=== PATIENT | female | born 1965 | race Caucasian/White ===

== ENCOUNTER 2023-08-24 16:27 | Observation (INO) | payer OTHER ==
--- OUTSIDE RECORDS SUMMARY | 2023-08-24 16:29 | XMS REPORT | Clinical Summary ---
Author Name Unknown Organization [facility] Address [address] [place] [address] Care Team Providers Care Corn Picker Name Role Phone Lavell Marcial MD Unavailable [phone] Samuel Workman MD Primary Care Provider [phone] iVncent Thacker MD Unavailable [phone] Allergies No known active allergies Medications Medication Sig Dispensed Refills Start Date End Date Status estradiol (ESTRACE) 2 mg tablet Take 2 mg by mouth daily. 0 04/21/2019 Active fluticasone furoate-vilanterol (BREO ELLIPTA) 200-25 mcg/dose 1 INHALATION ONCE DAILY. RINSE MOUTH/DRINK AFTER USE. 0 06/29/2018 Active Surgical History Surgery Date Site/Laterality Comments INTRAOCULAR LENS INSERTION 06/03/2018 - 06/02/2019 Bilsunday tang Family History Medical History Relation Name Comments Glaucoma Mother Macular degeneration Neg Hx Relation Name Status Comments Mother Social History Tobacco Use Types Packs/Day Years Used Date Smoking Tobacco: Never Smokeless Tobacco: Never Sex and Gender Information Value Date Recorded Sex Assigned at Not on file Gender Identity Not on file Sexual Orientation Not on file Obstetrics History Plan of Treatment Health Maintenance Due Date Last Done Comments COVID-19 Vaccine (#1) 1965 Influenza Vaccine 02/01/2023 Care Teams Corn Picker Relationship Specialty Start Date End Date Lavell Marcial MD [address] [place] [phone] PCP - External Referring Ophthalmology 06/11/19 Samuel Workman MD [address] [place] [id number] PCP - General Ophthalmology 06/11/19 Vincent Thacker MD [address] [place] [id number] PCP - External Primary Care Provider Family Practice 06/15/18
[2023-08-24 18:24] LABS: Absolute Lymphocytes (CBC) 0.4 K/uL (0.7-4.9); Absolute Monocytes 0.4 K/uL (0.1-1.3); Absolute Neutrophil 10.6 K/uL (1.8-8.0); Basophils % 0.2 % (0-1.3); Hematocrit 37.4 % (36.0-45.0); Lymphocytes % 3.1 % (15.3-44.8); MCH 30.7 pg (27.0-35.0); MCHC 34.7 g/dL (32.0-36.0); MCV 88.5 fL (80-100); MPV 7.8 fL (7.6-11.3); Monocytes % 3.9 % (3.3-12.3); Neutrophils % 92.8 % (41.7-73.7); Nucleated Red Blood Cells % 0.1 % (0-0); Platelets 177 thou/uL (152-406); RBC Red Blood Cell Count 4.22 M/uL (3.86-4.86); Red Cell Distribution Width 12.5 % (12.1-15.2)
[2023-08-24 18:44] LABS: Albumin 3.3 g/dL (3.4-5.0); Albumin/Globulin Ratio 0.7 (1.1-1.8); Anion Gap 10.8 mEq/L (5.0-15.0); Bilirubin Total 0.9 mg/dL (0.2-1.0); Globulin 4.5 g/dL (2.3-3.5); Potassium 3.8 mEq/L (3.5-5.1); Protein, Total 7.8 g/dL (6.4-8.2)
--- NOTE | 2023-08-24 18:44 | RAD REPORT ---
EXAM DESCRIPTION: RAD - Chest Single View - 08/24/2023 6:27 pm CLINICAL HISTORY: Cough;SOB COMPARISON: No comparisons FINDINGS: Lines: None. Lungs: Patchy irregular bilateral airspace disease. Pleural: No significant pleural effusions or pneumothorax. Cardiac: The heart size is within normal limits. Mediastinum: Within normal limits. Bones: No acute fractures. Other: None IMPRESSION: Findings concerning for multifocal pneumonia.
[2023-08-24 18:45] LABS: PT Prothrombin Time 15.5 SECONDS (9.5-12.5); PTT, Activated Partial Thromb 44.9 SECONDS (24.3-36.9); Protime INR 1.42
[2023-08-24] MEDS ORDERED: CEFTRIAXONE 1000 MG/VIAL ONE (19:12)
[2023-08-24] MEDS ORDERED: IPRATROPIUM BROM 0.5MG/2.5ML ONE (19:12)
[2023-08-24] MEDS ORDERED: ALBUTEROL 2.5 MG/3 ML NEB SOL ONE (19:12)
[2023-08-24] MEDS ORDERED: AZITHROMYCIN 250 MG TAB ONE (19:13)
[2023-08-24] MEDS ORDERED: NA CHLORIDE 0.9% 100 ML ONE (19:13)
[2023-08-24] MEDS ORDERED: ACETAMINOPHEN 500 MG TAB ONE (20:26)
--- NOTE | 2023-08-24 20:49 | RAD REPORT ---
EXAM DESCRIPTION: CT - Chest For Pe Angio - 08/24/2023 8:40 pm CLINICAL HISTORY: SOB COMPARISON: Chest Single View dated 08/24/2023 TECHNIQUE: Dynamically enhanced axial 3 mm thick images of the chest were obtained during administra tion of <100> mL Isovue 370 IV contrast. Coronal and oblique reconstruction images were generated and reviewed. Exam utilizes a protocol for optimal evaluation of pulmonary arterial tree. Maximum intensity projections 3D imaging was utilized All CT scans are performed using dose optimization technique as appropriate and may include automated exposure control or mA/KV adjustment according to patient size. FINDINGS: Chest Wall: No suspicious thyroid nodules or pathologic lymphadenopathy. Lungs: Patchy areas of ground-glass and mildly consolidative airspace disease bilaterally. . Pleura: No significant effusions or pneumothorax. Mediastinum/shaan: Mild mediastinal and hilar adenopathy which is likely reactive. Pulmonary arteries/Aorta: No filling defect identified. No aortic aneurysm. Heart: No significant pericardial effusion. Normal heart size. Upper abdomen: No acute abnormality. Bones: No acute abnormality. IMPRESSION: Negative for pulmonary embolism. Moderate bilateral airspace disease bilaterally concern ing for multifocal pneumonia.
[2023-08-24 20:59] LABS: Specific Gravity 1.011 (1.005-1.030); Sqamous Epithelial <5 /HPF (None Seen); Urine Bacteria None Seen /HPF (<20); Urine Bilirubin NEGATIVE (Negative); Urine Blood 1+ (Negative); Urine Clarity Clear (Clear); Urine Color Light-Yellow (Yellow); Urine Culture Reflex Order NOT NEEDED; Urine Glucose NEGATIVE (Negative); Urine Ketones NEGATIVE (Negative); Urine Microscopic Reflex YN ORDER UMIC; Urine Mucus Slight /HPF (None Seen); Urine Nitrite NEGATIVE (Negative); Urine Protein TRACE (Negative); Urine RBC <5 /HPF (None Seen); Urine Urobilinogen Normal (Normal); Urine WBC <5 /HPF (<5); Urine pH 5.5 (5.0-7.0)
--- NOTE | 2023-08-24 22:14 | ER ---
Nurse's Notes [facility] Name: Dang Mcintosh Age: 58 yrs Sex: Female : 1965 Arrival Date: 08/24/2023 Time: 16:27 Bed 20 Private MD: TOMA RIOS Diagnosis: Other pneumonia, unspecified organism;Dyspnea Presentation: 08/23 16:57 Chief complaint: Patient states: went to urgent care and they said come here for ko1 "severe pneumonia", covid and flu tests were negative. Coronavirus screen: At this time, the client does not indicate any symptoms associated with coronavirus-19. Ebola Screen: No symptoms or risks identified at this time. Initial Sepsis Screen: Does the patient meet any 2 criteria? No. Patient's initial sepsis screen is negative. Does the patient have a suspected source of infection? No. Patient's initial sepsis screen is negative. Risk Assessment: Do you want to hurt yourself or someone else? Patient reports no desire to harm self or others. Onset of symptoms was August 24, 2023. 16:57 Method Of Arrival: Ambulatory ko1 16:57 Acuity: RUBIO 3 ko1 Triage Assessment: 17:00 General: Appears in no apparent distress. ill, Behavior is calm, cooperative, ko1 appropriate for age. Pain: Complains of pain in headache, generalized body aches. Historical: - Allergies: 17:00 No Known Allergies; ko1 - Home Meds: 17:00 Zyrtec Oral [Active]; Trelegy Ellipta inhalation [Active]; ko1 - PMHx: 17:00 Asthma; ko1 - PSHx: 17:00 Total abdominal hysterectomy; ko1 - Immunization history:: Adult Immunizations up to date. - Social history:: Smoking status: Patient denies any tobacco usage or history of. Screenin:00 [facility] Fall Risk Assessment (Adult) History of falling in the last 3 months, tl4 including since admission No falls in past 3 months (0 pts) Confusion or Disorientation No (0 pts) Intoxicated or Sedated No (0 pts) Impaired Gait No (0 pts) Mobility Assist Device Used No (0 pt) Altered Elimination No (0 pt) Score/Fall Risk Level 0 - 2 = Low Risk Oriented to surroundings, Maintained a safe environment, Educated pt \\T\\ family on fall prevention, incl call for assistance when getting out of bed, Assessed \\T\\ reinforced patient's understanding of fall precautions, Hourly rounding (assess needs \\T\\ fall precautionary measures) done, Used ambulatory aids as needed (educated on \\T\\ assisted with), Used gait belt as appropriate. Abuse screen: Denies threats or abuse. Denies injuries from another. Nutritional screening: No deficits noted. Tuberculosis screening: No symptoms or risk factors identified. Assessment: 18:00 General: Appears ill, Behavior is calm, cooperative. Pain: Complains of pain in head. tl4 Neuro: Level of Consciousness is awake, alert, obeys commands, Oriented to person, place, time, situation, Moves all extremities. Speech is normal, Facial symmetry appears normal, Reports headache Denies paresthesias numbness. Cardiovascular: Capillary refill < 3 seconds Patient's skin is warm and dry. Rhythm is sinus rhythm. Respiratory: Reports shortness of breath on exertion cough that is non-productive. 19:08 Reassessment: Patient and/or family updated on plan of care and expected duration. Pain tl4 level reassessed. Patient is alert, oriented x 3, equal unlabored respirations, skin warm/dry/pink. Patient states symptoms have improved. 20:59 GI: No deficits noted. No signs and/or symptoms were reported involving the tl4 gastrointestinal system. : No deficits noted. No signs and/or symptoms were reported regarding the genitourinary system. EENT: No deficits noted. No signs and/or symptoms were reported regarding the EENT system. Derm: No deficits noted. No signs and/or symptoms reported regarding the dermatologic system. 21:56 Reassessment: Pt ambulated short distance. Pt initial SaO2 93%, decreased to 89% with tl4 ambulation. Provider Page aware. 08/24 00:19 Reassessment: Patient appears in no apparent distress at this time. Patient and/or km8 family updated on plan of care and expected duration. Pain level reassessed. Patient is alert, oriented x 3, equal unlabored respirations, skin warm/dry/pink. pt placed on 2L O2 via n/c per request. General: Appears in no apparent distress. comfortable, Behavior is calm, cooperative. Neuro: Level of Consciousness is awake, alert, obeys commands, Oriented to person, place, time, situation. Cardiovascular: Patient's skin is warm and dry. Respiratory: Airway is patent Respiratory effort is even, unlabored, Respiratory pattern is regular, symmetrical. Vital Signs: 08/23 16:57 BP 123 / 56; Pulse 96; Resp 18; Temp 98.4; Pulse Ox 94% on R/A; ko1 18:30 BP 140 / 67; Pulse 88; Resp 14; Pulse Ox 94% on R/A; tl4 19:00 BP 134 / 57; Pulse 88; Resp 18; Pulse Ox 94% on R/A; tl4 19:30 BP 134 / 59; Pulse 86; Resp 18; Pulse Ox 95% on R/A; tl4 20:00 BP 131 / 58; Pulse 97; Resp 17; Pulse Ox 100% on R/A; tl4 20:30 BP 139 / 56; Pulse 107; Resp 13; Pulse Ox 96% on R/A; tl4 21:00 BP 131 / 63; Pulse 105; Resp 18; Pulse Ox 96% ; tl4 08/24 00:00 BP 126 / 59; Pulse 92; Resp 16; Pulse Ox 92% on R/A; km8 ED Course: 08/23 16:28 Patient arrived in ED. rg4 16:29 TOMA RIOS is Private Physician. rg4 17:00 Triage completed. ko1 17:00 Arm band placed on right wrist. Patient placed in an exam room, on a stretcher, on ko1 broadcast engineer, on pulse oximetry, Patient notified of wait time. 17:19 Lucien Marin PA is PHCP. cp 17:19 Lucien Rivas MD is Attending Physician. cp 17:48 Bishop Cabrera, CRAIG is Primary Nurse. tl4 18:27 Initial lab(s) drawn, by ut, sent to lab. First set of blood cultures drawn by me, jg11 Second set of blood cultures drawn by me, EKG done, by ED staff. Inserted saline lock: 20 gauge in right antecubital area, using aseptic technique. Blood collected. 18:29 Chest Single View XRAY In Process Unspecified. EDMS 18:31 Warm blanket given. Client placed on continuous cardiac and pulse oximetry monitoring. jg11 NIBP monitoring applied. automotive parts counterperson on. Pulse ox on. 18:32 D-Dimer Sent. jg11 18:32 Troponin HS Sent. jg11 18:32 BNP Sent. jg11 18:32 Blood Culture Adult (2) Sent. jg11 18:33 CBC with Diff Sent. jg11 18:33 CMP Sent. jg11 18:33 Lactate w/ 2H reflex if indic. Sent. jg11 18:33 Protime (+inr) Sent. jg11 18:33 Ptt, Activated Sent. jg11 19:10 Blood Culture Adult (2) Sent. tl4 20:42 CT Chest For PE Angio In Process Unspecified. EDMS 21:23 Patient has correct armband on for positive identification. Placed in gown. Bed in low tl4 position. Call light in reach. Side rails up X2. Adult w/ patient. Provided Education on: ED process. 21:23 No provider procedures requiring assistance completed. tl4 22:13 Cesar Rogers is Hospitalizing Provider. 08/24 00:06 Patient admitted, IV remains in place. km8 00:21 Primary Nurse role handed off by Bishop Cabrera, CRAIG km8 00:21 Leta Parsons, CRAIG is Primary Nurse. km8 Administered Medications: 08/23 19:46 Drug: DuoNeb Nebulize (2.5 mg - 0.5 mg) 3 ml Nebulizer once Route: Nebulizer; tl4 20:42 Follow up: Response: No adverse reaction; Wheezing diminished tl4 19:46 Drug: Rocephin IV 1 grams IV at calculated rate once; Given slow IV push per pharmacy tl4 instructions Route: IV; Rate: calculated rate; Site: right antecubital; 20:41 Follow up: Response: No adverse reaction; IV Status: Completed infusion; IV Intake: tl4 100ml 19:46 Drug: AZITHromycin PO 500 mg PO once Route: PO; tl4 20:41 Follow up: Response: No adverse reaction tl4 20:41 Drug: Acetaminophen PO 1000 mg PO once Route: PO; tl4 21:24 Follow up: Response: No adverse reaction; Pain is decreased tl4 22:31 Drug: MethylPrednisoLONE IVP 125 mg IVP once Route: IVP; Site: right antecubital; tl4 22:54 Follow up: Response: No adverse reaction tl4 22:54 Drug: Tussionex Pennkinetic ER PO Suspension 5 ml PO once Route: PO; tl4 08/24 00:04 Follow up: Response: No adverse reaction km8 Medication: 08/23 20:59 VIS not applicable for this client. tl4 Intake: 20:41 IV: 100ml; Total: 100ml. tl4 Outcome: 22:14 Decision to Hospitalize by Provider. cp 08/24 00:18 Admitted to Med/surg accompanied by tech, via wheelchair, room 427, with oxygen, Other km8 report faxed to 4th floor Condition: stable Instructed on the need for admit, 00:43 Patient left the ED. km8 Signatures: Dispatcher [employer] EDMS Lucien Marin PA PA cp Garcia, Rubi rg4 Susie Rodriguez, RN RN ko1 Leta Parsons RN RN km8 Bishop Cabrera RN RN tl4 Chapin Damian jg11 Corrections: (The following items were deleted from the chart) 08/23 17:02 16:57 Chief complaint: Patient states: went to urgent care and they said come here for ko1 "severe pneumonia ko1 20:59 18:00 Respiratory: Reports shortness of breath cough that is tl4 tl4 08/24 00:06 08/23 21:23 IV discontinued, intact, bleeding controlled, No redness/swelling at site. km8 Pressure dressing applied, tl4
--- NOTE | 2023-08-24 22:15 | EDPHYS ---
Physician Documentation [facility] Name: Dang Mcintosh Age: 58 yrs Sex: Female : 1965 Arrival Date: 08/24/2023 Time: 16:27 Bed 20 Private MD: TOMA RIOS ED Physician Lucien Rivas HPI: 08/23 17:50 This 58 yrs old Female presents to ER via Ambulatory with complaints of Pneumonia. cp 17:50 The patient or guardian reports cough, that is intermittent, difficulty breathing. cp 17:50 Onset: The symptoms/episode began/occurred this past week. Associated signs and cp symptoms: Pertinent positives: cough, congestion. The patient has been recently seen at an urgent care, today, for similar complaints, and was sent to the [facility] Emergency Department for further evaluation, told has pneumonia after testing negative for COVID and influenza. Historical: - Allergies: 17:00 No Known Allergies; ko1 - Home Meds: 17:00 Zyrtec Oral [Active]; Trelegy Ellipta inhalation [Active]; ko1 - PMHx: 17:00 Asthma; ko1 - PSHx: 17:00 Total abdominal hysterectomy; ko1 - Immunization history:: Adult Immunizations up to date. - Social history:: Smoking status: Patient denies any tobacco usage or history of. ROS: 17:55 Constitutional: Negative for body aches, fever, poor PO intake, cp 17:55 Cardiovascular: Negative for chest pain, edema, palpitations, cp 17:55 Respiratory: Positive for cough, shortness of breath, on exertion. 17:55 Abdomen/GI: Negative for abdominal pain, vomiting, diarrhea, constipation, Exam: 17:30 ECG was reviewed by the Attending Physician. cp 18:00 Constitutional: The patient appears in no acute distress, alert, awake, cp non-diaphoretic, non-toxic, well developed, well nourished, 18:00 Head/Face: Normocephalic, atraumatic. cp 18:00 Eyes: Periorbital structures: appear normal, Conjunctiva: normal, no exudate, no injection, Sclera: no appreciated abnormality, Lids and lashes: appear normal, bilaterally, 18:00 ENT: External ear(s): are unremarkable, Nose: is normal, Mouth: Lips: moist, Oral mucosa: pink and intact, moist, Posterior pharynx: Airway: no evidence of obstruction, patent, 18:00 Neck: ROM/movement: is normal, is supple, without pain, no range of motions cp limitations, 18:00 Chest/axilla: Inspection: normal, 18:00 Cardiovascular: Rate: normal, Rhythm: regular, Edema: is not appreciated, JVD: is not cp appreciated, 18:00 Respiratory: the patient does not display signs of respiratory distress, Respirations: shallow respirations, that is mild, Breath sounds: bronchial sounds, that are mild, are heard diffusely, decreased breath sounds, that are mild, throughout, wheezing: is not appreciated, 18:00 Abdomen/GI: Inspection: abdomen appears normal, Palpation: abdomen is soft and non-tender, in all quadrants, 18:00 Back: pain, is absent, ROM is normal, 18:00 Neuro: Orientation: to person, place \T\ time. Mentation: is normal, Motor: moves all fours, strength is normal, Vital Signs: 16:57 BP 123 / 56; Pulse 96; Resp 18; Temp 98.4; Pulse Ox 94% on R/A; ko1 18:30 BP 140 / 67; Pulse 88; Resp 14; Pulse Ox 94% on R/A; tl4 19:00 BP 134 / 57; Pulse 88; Resp 18; Pulse Ox 94% on R/A; tl4 19:30 BP 134 / 59; Pulse 86; Resp 18; Pulse Ox 95% on R/A; tl4 20:00 BP 131 / 58; Pulse 97; Resp 17; Pulse Ox 100% on R/A; tl4 20:30 BP 139 / 56; Pulse 107; Resp 13; Pulse Ox 96% on R/A; tl4 21:00 BP 131 / 63; Pulse 105; Resp 18; Pulse Ox 96% ; tl4 08/24 00:00 BP 126 / 59; Pulse 92; Resp 16; Pulse Ox 92% on R/A; km8 MDM: 08/23 17:19 Patient medically screened. 22:05 Data reviewed: vital signs, nurses notes, lab test result(s), EKG, radiologic studies, cp CT scan, plain films. 22:05 I considered the following discharge prescriptions or medication management in the emergency department Medications were administered in the Emergency Department. See MAR. Care significantly affected by the following chronic conditions: asthma. Response to treatment: the patient's symptoms have mildly improved after treatment. ED course: patient ambulated and observe with oxygen sats dropping to 88% on RA. Will admit to services of hospitalist, DR Rogers, after discussion. 08/23 17:40 Order name: Blood Culture Adult (2) cp 08/23 17:40 Order name: CBC with Diff; Complete Time: 18:45 cp 08/23 18:46 Interpretation: Normal except: WBC 11.40; CED% 92.8; LYM% 3.1; NEUT A 10.6; LYMA 0.4. cp 08/23 17:40 Order name: CMP; Complete Time: 18:45 cp 08/23 18:46 Interpretation: Normal except: GLUC 147; CRE 1.09; GFR 58; ALB 3.3; GLOB 4.5; A/G 0.7. cp 08/23 17:40 Order name: Lactate w/ 2H reflex if indic.; Complete Time: 19:21 cp 08/23 21:03 Interpretation: Reviewed. cp 08/23 17:40 Order name: Protime (+inr); Complete Time: 19:21 cp 08/23 17:40 Order name: Ptt, Activated; Complete Time: 19:21 cp 08/23 17:40 Order name: Urinalysis w/ reflexes; Complete Time: 21:02 cp 08/23 21:03 Interpretation: Normal except: UBLD 1+; UPROT TRACE. cp 08/23 17:40 Order name: BNP; Complete Time: 18:45 cp 08/23 18:46 Interpretation: Reviewed. cp 08/23 17:40 Order name: Troponin HS; Complete Time: 18:45 cp 08/23 18:23 Order name: D-Dimer cp 08/24 00:07 Order name: Basic Metabolic Panel EDMS 08/24 00:09 Order name: Basic Metabolic Panel EDMS 08/24 00:09 Order name: Basic Metabolic Panel EDMS 08/24 00:09 Order name: CBC with Automated Diff EDMS 08/24 00:09 Order name: CBC with Automated Diff EDMS 08/24 00:09 Order name: CBC with Automated Diff EDMS 08/24 00:09 Order name: Magnesium EDMS 08/24 00:09 Order name: Magnesium EDMS 08/24 00:09 Order name: Magnesium EDMS 08/24 00:09 Order name: Phosphorus EDMS 08/24 00:09 Order name: Phosphorus EDMS 08/24 00:09 Order name: Phosphorus EDMS 08/23 17:40 Order name: Chest Single View XRAY; Complete Time: 18:45 cp 08/23 18:46 Interpretation: Report review. cp 08/23 20:07 Order name: CT Chest For PE Angio; Complete Time: 21:02 cp 08/23 21:11 Interpretation: Report reviewed. cp 08/23 17:40 Order name: EKG; Complete Time: 17:41 cp 08/23 17:40 Order name: Accucheck; Complete Time: 19:40 cp 08/23 17:40 Order name: Cardiac monitoring; Complete Time: 18:32 cp 08/23 17:40 Order name: EKG - Nurse/Tech; Complete Time: 18:32 cp 08/23 17:40 Order name: IV Saline Lock - Large Bore; Complete Time: 18:32 cp 08/23 17:40 Order name: Labs collected and sent; Complete Time: 18:32 cp 08/23 17:40 Order name: O2 Per Protocol; Complete Time: 18:32 cp 08/23 17:40 Order name: O2 Sat Monitoring; Complete Time: 18:32 cp 08/23 17:40 Order name: Vital Signs; Complete Time: 19:10 cp 08/23 21:10 Order name: Vital Signs; Complete Time: 21:18 cp EC:30 Rate is 87 beats/min. Rhythm is regular. NH interval is normal. QRS interval is normal. cp QT interval is normal. Interpreted by me. Reviewed by me. Administered Medications: 19:46 Drug: DuoNeb Nebulize (2.5 mg - 0.5 mg) 3 ml Nebulizer once Route: Nebulizer; tl4 20:42 Follow up: Response: No adverse reaction; Wheezing diminished tl4 19:46 Drug: Rocephin IV 1 grams IV at calculated rate once; Given slow IV push per pharmacy tl4 instructions Route: IV; Rate: calculated rate; Site: right antecubital; 20:41 Follow up: Response: No adverse reaction; IV Status: Completed infusion; IV Intake: tl4 100ml 19:46 Drug: AZITHromycin PO 500 mg PO once Route: PO; tl4 20:41 Follow up: Response: No adverse reaction tl4 20:41 Drug: Acetaminophen PO 1000 mg PO once Route: PO; tl4 21:24 Follow up: Response: No adverse reaction; Pain is decreased tl4 22:31 Drug: MethylPrednisoLONE IVP 125 mg IVP once Route: IVP; Site: right antecubital; tl4 22:54 Follow up: Response: No adverse reaction tl4 22:54 Drug: Tussionex Pennkinetic ER PO Suspension 5 ml PO once Route: PO; tl4 08/24 00:04 Follow up: Response: No adverse reaction km8 Disposition Summary: 08/24/23 22:14 Hospitalization Ordered Notes: Hospitalization Status: Inpatient Admission cp Provider: Cesar Rogers cp Location: Telemetry/MedSurg (Inpatient) cp Condition: Stable cp Problem: new cp Symptoms: have improved cp Bed/Room Type: Standard cp Room Assignment: 427(08/24/23 23:59) rv1 Diagnosis - Other pneumonia, unspecified organism cp - Dyspnea cp Forms: - Medication Reconciliation Form cp - SBAR form cp - Leadership Thank You Letter cp Signatures: Dispatcher [employer] EDLucien Dean PA PA cp Susie Rodriguez, RN RN ko1 Vashti Clemens rv1 Bishop Cabrera RN RN tl4 Leta Parsons RN km8 Corrections: (The following items were deleted from the chart) 08/23 23:59 22:14 cp rv1
[2023-08-24] MEDS ORDERED: METHYLPREDNISOLONE 125 MG INJ ONE (22:17)
[2023-08-24] MEDS ORDERED: HYDROCODONE/CHLORPHEN 5 ML/OSYR ONE (22:41)
--- NOTE | 2023-08-25 00:14 | P.HP ---
Certification for Inpatient Patient admitted to: Observation With expected LOS: <2 Midnights Practitioner: I am a practitioner with admitting privileges, knowledge of patient current condition, hospital course, and medical plan of care. Services: Services provided to patient in accordance with Admission requirements found in Title 42 Section 412.3 of the Code of Federal Regulations Patient History Date of Service: 08/25/23 Reason for admission: Shortness of breath and cough History of Present Illness: 58-year-old woman with a history of asthma compliant with Trelegy daily pr esented to the emergency department with a complaint of progressive shortness of breath, and cough of about 1 week duration. Patient went to the urgent care and was referred to the emergency department for further evaluation. CT chest done in the emergency department shows bilateral pneumonia. Patient noted to be hypoxic with exertion after nebulizer treatment and IV antibiotics given in the ED. Patient is hospitalized for further management. - Past Medical/Surgical History -: Asthma - Social History Smoking Status: Never smoker Alcohol use: No CD- Drugs: No Place of Residence: Home Review of Systems Other: Symptoms were preceded by upper respiratory symptoms including nasal congestion and stuffiness. Patient denies any sore throat. Patient denies any chest pain. Except as documented, all other systems reviewed and negative. Physical Examination - Physical Exam General: Alert, In no apparent distress, Oriented x3 HEENT: Mucous membr. moist/pink, Sclerae nonicteric Neck: Supple, JVD not distended Respiratory: Clear to auscultation bilaterally, Normal air movement Cardiovascular: No edema, Regular rate/rhythm, Normal S1 S2 Gastrointestinal: Normal bowel sounds, Soft and benign, Non-distended, No tenderness Musculoskeletal: No swelling, No tenderness Integumentary: No rashes, No cyanosis Neurological: Normal speech, Normal strength at 5/5 x4 extr, Cranial nerves 3-12 intact Lymphatics: No axilla or inguinal lymphadenopathy - Studies Laboratory Data (last 24 hrs) 08/24/23 08/24/23 08/24/23 18:15 18:15 18:15 WBC 11.40 H Hgb 13.0 Hct 37.4 Plt Count 177 PT 15.5 H INR 1.42 APTT 44.9 H Sodium 136 Potassium 3.8 BUN 13 Creatinine 1.09 H Glucose 147 H Total Bilirubin 0.9 AST 24 ALT 27 Alkaline Phosphatase 71 Assessment and Plan - Problems (Diagnosis) (1) Bilateral pneumonia Current Visit: Yes Status: Acute (2) Acute respiratory failure with hypoxia Current Visit: Yes Status: Acute (3) Asthma Current Visit: Yes Status: Acute - Plan Bilateral pneumonia Acute respiratory failure with hypoxia Admit patient to the medical floor. Start IV Rocephin and azithromycin Bronchodilators. Wean oxygen as tolerated. Patient has mild leukocytosis Follow blood cultures. Asthma Monitor for acute asthma exacerbation IV antibiotics Neb treatment. DVT prophylaxis: Lovenox - Advance Directives Does patient have a Living Will: No Does patient have a Durable POA for Healthcare: No
[2023-08-25] MEDS: IPRATROPIUM BROM 0.5MG/2.5ML ONE (01:10)
[2023-08-25] MEDS: ALBUTEROL 2.5 MG/3 ML NEB SOL NEB SCH (01:32)
[2023-08-25] MEDS: IPRATROPIUM BROM 0.5MG/2.5ML NEB SCH (01:32)
[2023-08-25] MEDS: NA CHLORIDE 0.9% 1,000 ML IV SCH (01:41)
[2023-08-25 01:45] VITALS: BMI 21.2
[2023-08-25 07:16] LABS: Absolute Lymphocytes (CBC) 0.3 K/uL (0.7-4.9); Absolute Monocytes 0.2 K/uL (0.1-1.3); Absolute Neutrophil 8.1 K/uL (1.8-8.0); Basophils % 0.2 % (0-1.3); Hematocrit 33.8 % (36.0-45.0); Hemoglobin 11.6 g/dL (12.0-15.0); Lymphocytes % 3.6 % (15.3-44.8); MCH 30.7 pg (27.0-35.0); MCHC 34.3 g/dL (32.0-36.0); MCV 89.4 fL (80-100); MPV 8.7 fL (7.6-11.3); Monocytes % 2.5 % (3.3-12.3); Neutrophils % 93.7 % (41.7-73.7); Platelets 162 thou/uL (152-406); RBC Red Blood Cell Count 3.78 M/uL (3.86-4.86); Red Cell Distribution Width 12.6 % (12.1-15.2)
[2023-08-25 07:21] LABS: Anion Gap 10.2 mEq/L (5.0-15.0); Magnesium 2.3 mg/dL (1.6-2.4); Phosphorus 2.2 mg/dL (2.5-4.9); Potassium 4.2 mEq/L (3.5-5.1)
[2023-08-25] MEDS: POTASS/SODIUM PHOSPHATE 1 PKT POWD.PACK PO SCH (09:31)
[2023-08-25] MEDS: ENOXAPARIN 40 MG/0.4 ML SQ SCH (09:31)
[2023-08-25] MEDS: CEFTRIAXONE 1,000 MG in NA CHLORIDE 0.9% 50 ML IVPB SCH (09:31)
[2023-08-25] MEDS: AZITHROMYCIN IV 500 MG in NA CHLORIDE 0.9% 250 ML IVPB SCH (09:36)
[2023-08-25 10:08] LABS: Blood Morphology Comment NOT SEEN (NOT SEEN); Dohle Bodies PRESENT; Platelet Estimate ADEQ; White Blood Cell Scan OK (OK)
[2023-08-25] MEDS: GUAIFENESIN 600 MG SA TAB PO SCH (10:32)
[2023-08-25] MEDS: ACETAMINOPHEN 325 MG TABLET PO PRN (10:32)
--- NOTE | 2023-08-25 11:55 | P.PN ---
Subjective Date of Service: 08/25/23 Chief Complaint: Shortness of breath and cough Pt is resting comfortably in bed. Pt is using 3L BNC and getting iv rocephin and azithro. No other complaints. Review of Systems General: Unremarkable Eyes: Unremarkable ENT: Unremarkable Respiratory: SOB with Excertion Cardiovascular: Unremarkable Gastrointestinal: Unremarkable Genitourinary: Unremarkable Musculoskeletal: Unremarkable Integumentary: Unremarkable Neurological: Unremarkable Lymphatics: Unremarkable Physical Examination - Vital Signs Temperature: 97.3 F Blood Pressure: 119/53 Pulse: 69 Respirations: 15 Pulse Ox (%): 96 - Physical Exam General: Alert, In no apparent distress, Oriented x3 HEENT: Atraumatic, Normocephalic, PERRLA Neck: Supple, 2+ carotid pulse no bruit, JVD not distended Respiratory: Clear to auscultation bilaterally, Normal air movement, Diminished (diminished bibasilar breath sounds) Cardiovascular: No edema, Normal pulses, Regular rate/rhythm, Normal S1 S2 Capillary refill: <2 Seconds Gastrointestinal: Normal bowel sounds, Soft and benign, Non-distended Musculoskeletal: No clubbing, No swelling Integumentary: No rashes, No breakdown Neurological: Normal gait, Normal speech, Normal strength at 5/5 x4 extr, Normal tone, Sensation intact Lymphatics: No axilla or inguinal lymphadenopathy - Studies Laboratory Data (last 24 hrs) 08/24/23 08/24/23 08/24/23 18:15 18:15 18:15 WBC 11.40 H Hgb 13.0 Hct 37.4 Plt Count 177 PT 15.5 H INR 1.42 APTT 44.9 H Sodium 136 Potassium 3.8 BUN 13 Creatinine 1.09 H Glucose 147 H Total Bilirubin 0.9 AST 24 ALT 27 Alkaline Phosphatase 71 Assessment And Plan - Plan Bilateral pneumonia: Will continue rocephin and azithro. Follow up blood culture. Acute respiratory failure with hypoxia: Due to bilateral pneumonia. Will continue iv abx, 3L oxygen, and prn duoneb Asthma: Will continue solumedrol, oxygen, and prn duoneb Hypophosphotemia: Phos is 2.2. Will replete and monitor. DVT prophylaxis: Lovenox
[2023-08-25] MEDS: BENZONATATE 100 MG CAP PO PRN (21:14)
[2023-08-25] MEDS: METHYLPREDNISOLONE 40 MG INJ IV SCH (21:15)
[2023-08-25 22:48] LABS: C.diff Antigen/Toxin Ag neg : Tox neg (NEG : NEG); CDIFF INTERNAL NEG CONTROL White Background (WHITE BKGD); STOOL CONSISTENCY Liquid/Semi-Solid
[2023-08-26] MEDS: ONDANSETRON 4 MG/2 ML VIAL IV PRN (06:24)
[2023-08-26 07:28] LABS: Absolute Lymphocytes (CBC) 0.5 K/uL (0.7-4.9); Absolute Monocytes 0.4 K/uL (0.1-1.3); Absolute Neutrophil 9.2 K/uL (1.8-8.0); Hematocrit 33.5 % (36.0-45.0); Hemoglobin 11.5 g/dL (12.0-15.0); Lymphocytes % 5.2 % (15.3-44.8); MCH 30.7 pg (27.0-35.0); MCHC 34.3 g/dL (32.0-36.0); MCV 89.3 fL (80-100); MPV 8.4 fL (7.6-11.3); Monocytes % 4.4 % (3.3-12.3); Neutrophils % 90.4 % (41.7-73.7); Platelets 210 thou/uL (152-406); RBC Red Blood Cell Count 3.75 M/uL (3.86-4.86); Red Cell Distribution Width 12.4 % (12.1-15.2)
[2023-08-26 07:44] LABS: Anion Gap 7.5 mEq/L (5.0-15.0); Magnesium 2.4 mg/dL (1.6-2.4); Phosphorus 2.4 mg/dL (2.5-4.9); Potassium 3.5 mEq/L (3.5-5.1)
[2023-08-26 08:33] VITALS: BP 150/72; TEMP 98.5
[2023-08-26] MEDS: POTASSIUM CL SA 10 MEQ TAB PO ONE (09:13)
[2023-08-26] MEDS: POTASS/SODIUM PHOSPHATE 1 PKT POWD.PACK PO SCH (09:14)
--- NOTE | 2023-08-26 12:04 | P.PN ---
Subjective Date of Service: 08/26/23 Chief Complaint: Shortness of breath and cough Pt is resting comfortably in bed. Pt is oxygenating well on room air. She had diarrhea but C diff is negative. She is getting iv rocephin and azithro. No other complaints. Review of Systems General: Unremarkable Eyes: Unremarkable ENT: Unremarkable Respiratory: Unremarkable Cardiovascular: Unremarkable Gastrointestinal: Diarrhea Genitourinary: Unremarkable Musculoskeletal: Unremarkable Integumentary: Unremarkable Neurological: Unremarkable Lymphatics: Unremarkable Physical Examination - Vital Signs Temperature: 98.5 F Blood Pressure: 150/72 Pulse: 79 Respirations: 18 Pulse Ox (%): 92 - Physical Exam General: Alert, In no apparent distress, Oriented x3 HEENT: Atraumatic, Normocephalic, PERRLA Neck: Supple, 2+ carotid pulse no bruit Respiratory: Clear to auscultation bilaterally, Normal air movement Cardiovascular: No edema, Normal pulses, Regular rate/rhythm, Normal S1 S2 Capillary refill: <2 Seconds Gastrointestinal: Normal bowel sounds, Soft and benign, Non-distended Musculoskeletal: No clubbing, No swelling Integumentary: No rashes, No breakdown Neurological: Normal gait, Normal speech, Normal strength at 5/5 x4 extr Lymphatics: No axilla or inguinal lymphadenopathy Assessment And Plan - Plan Bilateral pneumonia: Will continue rocephin and azithro. Follow up blood culture. WBC is improving 11.2 -> 10.2. Acute respiratory failure with hypoxia: Due to bilateral pneumonia. Pt is off oxygen. She is oxygenating well on room air. Will continue iv abx and prn duoneb Asthma: Will continue solumedrol, oxygen, and prn duoneb Hypophosphotemia: Phos is 2.2. Will replete and monitor. Diarrhea: C diff is negative. Will give prn loperamide. DVT prophylaxis: Lovenox
[2023-08-26] MEDS: LOPERAMIDE HCL 2 MG CAPSULE PO PRN (13:14)
--- NOTE | 2023-08-26 14:19 | EKG ---
Test Date: 2023-08-24 Test Time: 17:23:47 Manager Surgical: [place]KE MEASUREMENT RESULTS: Intervals: Rate: 87 MA: 138 QRSD: 80 QT: 362 QTc: 435 [place]: P: 71 MA: 138 QRS: 61 T: 87 INTERPRETIVE STATEMENTS: Normal sinus rhythm Normal ECG No previous ECG available for comparison Electronically Signed On 08-26-23 14:14:44 CDT by Kishor Fisher
[2023-08-26 14:27] VITALS: O2SAT 97
--- NOTE | 2023-08-26 14:44 | P.DS ---
Admission Date: 08/24/23 Discharge Date: 08/26/23 Disposition: ROUTINE DISCHARGE Discharge Condition: GOOD Reason for Admission: Shortness of breath and cough Brief History of Present Illness: 58-year-old woman with a history of asthma compliant with Trelegy daily presented to the emergency department with a complaint of progressive shortness of breath, and cough of about 1 week duration. Patient went to the urgent care and was referred to the emergency department for further evaluation. CT chest done in the emergency department shows bilateral pneumonia. Patient noted to be hypoxic with exertion after nebulizer treatment and IV antibiotics given in the ED. Patient is hospitalized for further management. Hospital Course: Pt is a 58-year-old woman with a history of asthma who presented with SOB and cough that started about 1 week before this admission. It progressively worsened to the extent that pt went to the urgent care center for evaluation. Pt was later sent to the ER from the urgent care center for further evaluation. On admission, CT chest showed bilateral pneumonia. We admitted pt and gave iv rocephin/azithromycin, prn duoneb and oxygen. Pt later developed diarrhea. C diff toxin test was negative. The diarrhea resolved with prn loperamide. Pt was weaned off oxygen. The symptoms resolved and she requested to be discharged. Pt was discharged with cefdinir and azithro. We also repleted deficient electrolytes. She was in NAD prior to discharge. Vital Signs/Physical Exam: Temp Pulse Resp BP Pulse Ox 98.5 F 79 18 150/72 H 92 08/26/23 12:04 08/26/23 12:04 08/26/23 12:04 08/26/23 12:04 08/26/23 12:04 Laboratory Data at Discharge: WBC 10.20 thou/uL (4.3-10.9) 08/26/23 06:26 Hgb 11.5 g/dL (12.0-15.0) L 08/26/23 06:26 Hct 33.5 % (36.0-45.0) L 08/26/23 06:26 Plt Count 210 thou/uL (152-406) D 08/26/23 06:26 PT 15.5 SECONDS (9.5-12.5) H 08/24/23 18:15 INR 1.42 08/24/23 18:15 APTT 44.9 SECONDS (24.3-36.9) H 08/24/23 18:15 Sodium 140 mEq/L (136-145) 08/26/23 06:26 Potassium 3.5 mEq/L (3.5-5.1) D 08/26/23 06:26 BUN 12 mg/dL (7-18) 08/26/23 06:26 Creatinine 0.77 mg/dL (0.55-1.02) 08/26/23 06:26 Glucose 176 mg/dL (74-106) H 08/26/23 06:26 Phosphorus 2.4 mg/dL (2.5-4.9) L 08/26/23 06:26 Magnesium 2.4 mg/dL (1.6-2.4) 08/26/23 06:26 Total Bilirubin 0.9 mg/dL (0.2-1.0) 08/24/23 18:15 AST 24 U/L (15-37) 08/24/23 18:15 ALT 27 U/L (13-56) 08/24/23 18:15 Alkaline Phosphatase 71 U/L (45-117) 08/24/23 18:15 Home Medications: Albuterol Inhaler [Ventolin Inhaler*] 2 puff IH Q1H PRN 08/25/23 Cetirizine HCl [Zyrtec] 10 mg PO DAILY 08/25/23 Fluticasone/Umeclidin/Vilanter [Trelegy Ellipta 100-62.5-25] 1 puff IH DAILY 08/25/23 Azithromycin 500 mg PO DAILY 7 Days #7 tab 08/26/23 Cefdinir [Cefdinir*] 300 mg PO BID 7 Days #14 cap 08/26/23 Loperamide [Imodium*] 2 mg PO Q4HP PRN 3 Days #18 cap 08/26/23 predniSONE [Deltasone] 40 mg PO DAILY 2 Days #2 tab 08/26/23 New Medications: Loperamide [Imodium*] 2 mg PO Q4HP PRN 3 Days #18 cap PRN Reason: Diarrhea Azithromycin 500 mg PO DAILY 7 Days #7 tab Cefdinir [Cefdinir*] 300 mg PO BID 7 Days #14 cap predniSONE [Deltasone] 40 mg PO DAILY 2 Days #2 tab Physician Discharge Instructions: Continue ad florian activity. Take Cefdinie 300mg po BID and Azithromycin 500mg po daily for 1 week. Take Prednisone 40mg po daily for 2 more days and continue prn loperamide and other home meds. Follow up with PCP within 1 week Diet: AHA Activity: Ad florian Followup: Vincent Thacker MD [Primary Care Provider] -
== END 2023-08-26 17:18 | disposition home or self-care (01) ==
LOC: ER 16:27 → 4TH 23:51
PROVIDERS: ADMIT Internal Medicine; ATTEND Hospitalist
DX: J18.9 Pneumonia, unspecified organism (principal); J96.01 Acute respiratory failure with hypoxia; J45.909 Unspecified asthma, uncomplicated; R05.9 Cough, unspecified; E83.39 Other disorders of phosphorus metabolism; R19.7 Diarrhea, unspecified
CPT/HCPCS: 96365; 93005; 87040 ×2; 87045; 85025 ×3; 81001; 80048 ×2; 36415 ×2; 83735 ×2; 87177; 84100 ×2; 85610; 85379; 87046; 83605; 85730; 87209; 87324; 84484; 80053; 83880; 71275; 71045; 94640 ×7; 94760 ×5; 96375; 99285; Q9967; J7613 ×9; J7644 ×7; J1650 ×2; J2930; J2405; J7050 ×2; J7030 ×3; J2920 ×2; J0696 ×3; G0378 ×3